=== PATIENT | female | born 1970 | race African-American/Black ===

== ENCOUNTER 2017-04-11 09:37 | Emergency (ER) | payer OTHER ==
[~2017-04-11] VITALS: Ht 167.6 cm; Wt 98.0 kg
[~2017-04-11 09:37] MED LIST: CLON0.1T PO; HYDR25TA; METF500T4 PO; PRAV20TA
[2017-04-11] MEDS ORDERED: GLIP10TA10 PO (09:57)
[2017-04-11] MEDS ORDERED: DIPHENHYDRAMINE 50MG/ML VIAL IV ONE (10:30)
[2017-04-11] MEDS ORDERED: SODIUM CHLORIDE 0.9% 1,000 ML IV ONE (10:30)
[2017-04-11] MEDS ORDERED: METHYLPREDNISOLONE SOD SUCC 125 MG/2 ML VIAL IV ONE (10:30)
[2017-04-11] MEDS ORDERED: FAMOTIDINE 20MG/2ML VIAL IV ONE (10:30)
[2017-04-11 13:44] VITALS: BP 145/87
== END 2017-04-11 13:48 | disposition home or self-care (01) ==
LOC: ER 09:37
DX: T65.891A Toxic effect of other specified substances, accidental (unintentional), initial encounter (principal); L23.5 Allergic contact dermatitis due to other chemical products; Y92.89 Other specified places as the place of occurrence of the external cause; I10 Essential (primary) hypertension; E11.9 Type 2 diabetes mellitus without complications; Z88.5 Allergy status to narcotic agent
CPT/HCPCS: 96361; 96374; 96375; 99285; J1200; J2930; J3490; J7030; Z7610

== ENCOUNTER 2017-10-01 12:56 | Observation (INO) | payer OTHER ==
[~2017-10-01] VITALS: Ht 168.9 cm; Wt 100.4 kg
[~2017-10-01 12:56] MED LIST changes: +CLON0.2T PO; +GLIP10TA10 PO; +GLIP5TAB12 PO; -HYDR25TA; -METF500T4 PO; -PRAV20TA
[2017-10-01] MEDS ORDERED: ASPIRIN 81MG TABLET PO STA (13:39)
[2017-10-01] MEDS ORDERED: DIPHENHYDRAMINE 50MG/ML VIAL IV ONE (13:45)
[2017-10-01] MEDS ORDERED: METHYLPREDNISOLONE SOD SUCC 125 MG/2 ML VIAL IV ONE (13:45)
[2017-10-01] MEDS ORDERED: FAMOTIDINE 20MG/2ML VIAL IV ONE (13:45)
[2017-10-01 14:51] LABS: BASOPHILS % 0.3 % (0.0-2.0); EOSINOPHILS % 0.3 % (0.0-5.0); HEMATOCRIT. 32.4 % (36.0-48.0); HEMOGLOBIN. 10.3 g/dL (12.0-16.0); LYMPHOCYTES % 24.5 % (20.0-50.0); MEAN CORPUSCULAR HEMOGLOBIN 22.9 pg (28.0-32.0); MEAN PLATELET VOLUME 7.4 fl (7.4-10.4); MONOCYTES % 7.5 % (2.0-8.0); NEUTROPHILS % 67.4 % (40.0-76.0); PLATELET 358 x1000/uL (130-400); RED CELL DISTRIBUTION WIDTH 17.9 % (11.6-14.6)
[2017-10-01 14:56] LABS: CHLORIDE 105 mEq/L (98-107)
[2017-10-01 15:03] LABS: INR 0.9; PROTHROMBIN TIME 9.8 sec (9.4-11.6)
[2017-10-01 15:12] LABS: HCG SCREEN NEGATIVE
[2017-10-01] MEDS ORDERED: ATROVASTATIN PO (20:40)
[2017-10-01 20:43] VITALS: BP 158/76
[2017-10-01 20:59] VITALS: BP 158/76
[2017-10-01] MEDS ORDERED: DEXTROSE 50% WATER 50ML SYRINGE IV PRN (21:30)
[2017-10-01] MEDS ORDERED: ACETAMINOPHEN 325MG TABLET PO PRN (21:30)
[2017-10-01] MEDS ORDERED: IPRATROPIUM/ALBUTEROL 0.5-3(2.5)MG/3ML NEB HHN PRN (21:30)
[2017-10-01] MEDS ORDERED: DIPHENHYDRAMINE 50MG/ML VIAL IV PRN (21:30)
[2017-10-02] VITALS (7 sets, daily range): BP systolic 140–173; BP diastolic 67–90
[2017-10-02] MEDS ORDERED: POTASSIUM CHLORIDE 20MEQ TABLET SR PO NR
[2017-10-02] MEDS: BLOOD SUGAR DIAGNOSTIC STRIP TEST SCH ×2 (06:49→11:53)
[2017-10-02 07:02] LABS: BASOPHILS % 0.1 % (0.0-2.0); HEMATOCRIT. 33.7 % (36.0-48.0); HEMOGLOBIN. 10.7 g/dL (12.0-16.0); LYMPHOCYTES % 11.6 % (20.0-50.0); MEAN CORPUSCULAR HEMOGLOBIN 22.8 pg (28.0-32.0); MEAN CORPUSCULAR VOLUME 71.9 fL (81.0-99.0); MEAN PLATELET VOLUME 8.1 fl (7.4-10.4); MONOCYTES % 2.6 % (2.0-8.0); NEUTROPHILS % 85.7 % (40.0-76.0); PLATELET 385 x1000/uL (130-400)
[2017-10-02 07:35] LABS: CHLORIDE 105 mEq/L (98-107)
[2017-10-02 07:43] LABS: HDL CHOLESTEROL 79 mg/dL (40-59)
[2017-10-02 07:45] LABS: LDL CHOLESTEROL 123 mg/dL (5-100)
[2017-10-02] MEDS: INSULIN LISPRO 100 UNITS/ML SUBCUT SCH ×2 (08:10→11:53)
[2017-10-02] MEDS ORDERED: HEPARIN 5000 UNITS/ML VIAL SUBCUT SCH (09:00)
[2017-10-02] MEDS ORDERED: FAMOTIDINE 20MG TABLET PO SCH (09:00)
[2017-10-02] MEDS ORDERED: PREDNISONE 20MG TABLET PO SCH (09:00)
[2017-10-02] MEDS: CLONIDINE 0.1MG TABLET PO SCH ×2 (09:44→15:00)
[2017-10-02] MEDS ORDERED: LEVOFLOXACIN 500MG TABLET PO SCH (11:00)
[2017-10-02] MEDS ORDERED: LOSARTAN POTASSIUM 50 MG TABLET PO SCH (13:00)
[2017-10-02] MEDS ORDERED: ATORVASTATIN CALCIUM 20MG TABLET PO SCH (21:00)
== END 2017-10-02 17:10 | disposition home or self-care (01) ==
LOC: ER 12:56 → EDBEDREQ 13:42 → 7WST 16:24 → INTOOBSV 16:24 → EDBEDREQ 16:27 → EDBEDREQTM 16:27 → ENRESERV 19:24
PROVIDERS: ADMIT Internal Medicine; ATTEND Internal Medicine
DX: T78.40XA Allergy, unspecified, initial encounter (principal); E11.9 Type 2 diabetes mellitus without complications; E66.9 Obesity, unspecified; E78.00 Pure hypercholesterolemia, unspecified; I10 Essential (primary) hypertension; J45.909 Unspecified asthma, uncomplicated; X58.XXXA Exposure to other specified factors, initial encounter
CPT/HCPCS: 36415; 71045; 80048; 80053; 80061; 82962; 84484; 84703; 85025; 85610; 85730; 93005; 96374; 96375; 99285; G0378; J1200; J2930; J3490; J7512

== ENCOUNTER 2018-12-04 00:37 | Emergency (ER) | payer OTHER ==
[~2018-12-04] VITALS: Ht 167.6 cm; Wt 91.0 kg
[~2018-12-04 00:37] MED LIST changes: +ATROVASTATIN PO; -CLON0.2T PO; -GLIP10TA10 PO
[2018-12-04] MEDS ORDERED: FAMOTIDINE 20MG/2ML VIAL IV ONE (03:00)
[2018-12-04] MEDS ORDERED: DEXAMETHASONE 10 MG/ML VIAL IV ONE (03:00)
[2018-12-04] MEDS ORDERED: DIPHENHYDRAMINE 50MG/ML VIAL IV ONE (03:00)
[2018-12-04 03:17] LABS: BASOPHILS % 0.3 % (0.0-2.0); HEMOGLOBIN. 9.4 g/dL (12.0-16.0); MEAN CORPUSCULAR HEMOGLOBIN 20.3 pg (28.0-32.0); MEAN CORPUSCULAR VOLUME 64.6 fL (81.0-99.0); MEAN PLATELET VOLUME 7.5 fl (7.4-10.4); MONOCYTES % 6.4 % (2.0-8.0); NEUTROPHILS % 59.3 % (40.0-76.0); PLATELET 571 x1000/uL (130-400); RED BLOOD CELL COUNT 4.64 mill/uL (4.2-5.4)
[2018-12-04 03:23] LABS: CHLORIDE 107 mEq/L (98-107)
[2018-12-04 03:54] LABS: PLATELET ESTIMATE INCREASED
[2018-12-04] MEDS ORDERED: CLONIDINE 0.2MG TABLET PO ONE (04:30)
[2018-12-04 05:39] VITALS: BP 146/70
== END 2018-12-04 05:40 | disposition home or self-care (01) ==
LOC: ER 00:37
DX: T65.91XA Toxic effect of unspecified substance, accidental (unintentional), initial encounter (principal); L25.3 Unspecified contact dermatitis due to other chemical products; Y93.89 Activity, other specified; Y92.89 Other specified places as the place of occurrence of the external cause; Y99.0 Civilian activity done for income or pay
CPT/HCPCS: 36415; 80053; 85025; 96374; 96375; 99283; J1100; J1200; J3490; Z7610

== ENCOUNTER 2019-04-30 16:50 | Emergency (ER) | payer OTHER ==
[~2019-04-30] VITALS: Ht 177.8 cm; Wt 91.0 kg
[2019-04-30] MEDS ORDERED: HYDROCODONE/ACETAMINOPHEN 5/325MG TABLET PO ONE (17:30)
[2019-04-30] MEDS ORDERED: KETOROLAC 30MG/ML VIAL IV ONE (17:30)
[2019-04-30] MEDS ORDERED: KETOROLAC 60MG/2ML VIAL IM ONE (19:45)
[2019-04-30 21:06] VITALS: BP 151/92
== END 2019-04-30 21:08 | disposition home or self-care (01) ==
LOC: ER 16:50
DX: S80.01XA Contusion of right knee, initial encounter (principal); S20.211A Contusion of right front wall of thorax, initial encounter; S80.12XA Contusion of left lower leg, initial encounter; E11.9 Type 2 diabetes mellitus without complications; I10 Essential (primary) hypertension; E78.00 Pure hypercholesterolemia, unspecified; Z79.899 Other long term (current) drug therapy; Z88.5 Allergy status to narcotic agent; Z98.51 Tubal ligation status; Z79.84 Long term (current) use of oral hypoglycemic drugs; V89.2XXA Person injured in unspecified motor-vehicle accident, traffic, initial encounter; Y93.89 Activity, other specified; Y92.89 Other specified places as the place of occurrence of the external cause; Y99.8 Other external cause status
CPT/HCPCS: 71101; 73560; 73562; 73590; 73610; 96372; 99283; J1885; L1830